=== PATIENT | female | born 1960 | race Caucasian/White ===

== ENCOUNTER → 2023-12-12 14:57 | Outpatient (REF) | payer BC, SELFPAY | LOC: HWRAD 14:57 | PROVIDERS: ATTENDING PHYSICIAN Nurse Practitioner Family | DX: Z86.39 Personal history of other endocrine, nutritional and metabolic disease (principal) | CPT/HCPCS: 76536 ==

== ENCOUNTER → 2024-01-23 09:57 | Outpatient (REF) | payer BC, SELFPAY | LOC: RAD 09:57 | PROVIDERS: ATTENDING PHYSICIAN Internal Medicine Critical Care Medicine; FAMILY PHYSICIAN Nurse Practitioner Family | DX: R91.1 Solitary pulmonary nodule (principal); J47.9 Bronchiectasis, uncomplicated | CPT/HCPCS: 71250 ==